=== PATIENT | male | born 1955 ===

== ENCOUNTER 2019-11-21 00:42 | Emergency (ER) | payer OTHER ==
--- NOTE | 2019-11-21 00:54 | Emergency Department Report ---
HPI - General PUI?: No Time Seen by Provider: 11/21/19 00:46 - HPI HPI: Room 1 The patient is a 64-year-old male present with a chief complaint of urinary retention. Patient has history of an enlarged prostate and takes Flomax but states he has been unable to urinate for the last 2 hours. Upon arrival to the ED the patient states he is only able to produce a scant amount of urine. Patient complains of abdominal pressure. ED Past Medical Hx - Past Medical History Previous Medical History?: No Additional medical history: BPH - Surgical History Past Surgical History?: No - Family History Family history: no significant - Social History Smoking Status: Never Smoker Substance Use Type: None (Denies illicit drug use) ED Review of Systems ROS: Stated complaint: UNABLE TO URINATE Other details as noted in HPI Constitutional: no symptoms reported Respiratory: no symptoms reported Endocrine: no symptoms reported Gastrointestinal: abdominal pain Genitourinary: other (Unable to urinate) Physical Exam - Physical Exam Physical Exam: GENERAL: The patient is well-developed well-nourished male lying on stretcher appearing to be in moderate discomfort. [] HEENT: Normocephalic. Atraumatic. Extraocular motions are intact. Patient has moist mucous membranes. NECK: Supple. Trachea midline CHEST/LUNGS: Clear to auscultation. There is no respiratory distress noted. HEART/CARDIOVASCULAR: Regular. There is no tachycardia. There is no gallop rub or murmur. ABDOMEN: Abdomen is soft, with suprapubic discomfort. SKIN: There is no rash. There is no edema. There is no diaphoresis. NEURO: The patient is awake, alert, and oriented. The patient is cooperative. The patient has normal speech and gait. MUSCULOSKELETAL: There is no evidence of acute injury. ED Medical Decision Making - Lab Data Laboratory Tests 11/21/19 00:51 Urine Color Straw Urine Turbidity Clear Urine pH 6.0 Ur Specific [place] 1.004 Urine Protein <15 mg/dl Urine Glucose (UA) Neg Urine Ketones Neg Urine Blood Mod Urine Nitrite Neg Urine Bilirubin Neg Urine Urobilinogen < 2.0 Ur Leukocyte Esterase Neg Urine WBC (Auto) 1.0 Urine RBC (Auto) < 1.0 Urine Mucus Few - Differential Diagnosis Urinary retention Critical care attestation.: If time is entered above; I have spent that time in minutes in the direct care of this critically ill patient, excluding procedure time. ED Disposition Clinical Impression: Urinary retention Disposition: DC-01 TO HOME OR SELFCARE Is pt being admited?: No Does the pt Need Aspirin: No Condition: Stable Instructions: Urinary Retention in Men (ED), [place] Catheter Placement and Care (ED), Urinary Leg Bag (GEN) Additional Instructions: Return to the emergency department should you develop worsening symptoms, inability to tolerate food or liquids, high fever or any other concerns Referrals: MEMO CAZARES MD [Staff Physician] - [facility] (Dr. Cazares is a urologist. Please follow-up with him for further evaluation) Time of Disposition: 02:05
[2019-11-21 01:40] LABS: Bilirubin,Urine NEG (Negative); Blood,Urine MOD (Negative); Color,Urine Straw (Yellow); Mucus,Urine FEW /HPF; Protein,Urine <15 mg/dL mg/dL (Negative); RBC,Urine < 1.0 /HPF (0.0-6.0); Urobilinogen,Urine < 2.0 mg/dL (<2.0)
[2019-11-21 02:58] VITALS: BP 123/76
== END 2019-11-21 02:30 | disposition home or self-care (01) ==
LOC: ED 00:42
DX: R33.8 Other retention of urine (principal)
CPT/HCPCS: 51702; 81001